=== PATIENT | male | born 1990 | race Caucasian/White ===

== ENCOUNTER 2018-09-03 02:57 | Emergency (ER) | payer SELFPAY ==
--- NOTE | 2018-09-03 04:19 | CR ---
Indication: Left-sided dental pain, broken tooth Technique: Four views of the mandible Comparison: None Findings: The osseous structures and teeth are grossly normal in appearance. Visualized paranasal sinuses and mastoid air cells are normally aerated. No gross soft tissue abnormalities. Impression: Grossly normal mandible. CT scan facial bones recommended to further characterize if clinically warranted. Dictated by Israel Del Angel MD @ 09/03/2018 4:18:34 AM Dictated by: Israel Del Angel MD @ 09/03/2018 04:18:41 (Electronically Signed)
[2018-09-03] MEDS ORDERED: Benzocaine 20% Topical Spray UD MUCMEM ONE (04:28)
[2018-09-03] MEDS ORDERED: Ketorolac 60 MG/2 ML SDV IM ONE (04:28)
[2018-09-03] MEDS ORDERED: Lidocaine 2% Viscous Solution 100 ML Bottle PO ONE (04:28)
[2018-09-03] MEDS ORDERED: Lidocaine 2% Viscous Solution 15 ML Cup ONE (04:33)
[2018-09-03] MEDS ORDERED: Lidocaine 2% Viscous Solution 15 ML Cup PO ONE (04:36)
--- NOTE | 2018-09-03 05:10 | EDM.PDOC ---
ED HPI GENERAL MEDICAL PROBLEM - General Chief Complaint: ENT Problem Stated Complaint: TOOTH PAIN Time Seen by Provider: 09/03/18 05:04 - History of Present Illness INITIAL COMMENTS - FREE TEXT/NARRATIVE: HISTORY AND PHYSICAL: History of present illness: Patient's a 27-year-old white male presents with concern of dental pain is scheduled dental appointment on Thursday. Review of systems: As per history of present illness and below otherwise all systems reviewed and negative. Past medical history: As per history of present illness and as reviewed below otherwise noncontributory. Surgical history: As per history of present illness and as reviewed below otherwise noncontributory. Social history: No reported history of drug or alcohol abuse. Family history: As per history of present illness and as reviewed below otherwise noncontributory. Physical exam: HEENT: Atraumatic, normocephalic, pupils reactive, negative for conjunctival pallor or scleral icterus, mucous membranes moist, throat clear, neck supple, nontender, trachea midline. Generally poor dentition he has known dental carry dental fracture and a left lower tooth Lungs: Clear to auscultation, breath sounds equal bilaterally, chest nontender. Heart: S1S2, regular, negative for clicks, rubs, or JVD. Abdomen: Soft, nondistended, nontender. Negative for masses or hepatosplenomegaly. Negative for costovertebral tenderness. Pelvis: Stable nontender. Genitourinary: Deferred. Rectal: Deferred. Extremities: Atraumatic, negative for cords or calf pain. Neurovascular unremarkable. Neuro: Awake, alert, oriented. Cranial nerves II through XII unremarkable. Cerebellum unremarkable. Motor and sensory unremarkable throughout. Exam nonfocal. Diagnostics: X-ray mandible Therapeutics: Toradol 60 IM dental balls Impression: #1 dentalgia #2 dental caries with secondary dental fracture #3 dental abscess Definitive disposition and diagnosis as appropriate pending reevaluation and review of above. Left Oral/Mouth Pain Score (Numeric/FACES): 10 - Related Data Allergies Allergy/AdvReac Type Severity Reaction Status Date / Time Penicillins Allergy Unknown unknown Verified 09/03/18 03:11 Home Meds: Home Meds . [No Known Home Meds] 09/03/18 [History] Past Medical History Cardiovascular History: Reports: None Respiratory History: Reports: None Gastrointestinal History: Reports: None Genitourinary History: Reports: None Musculoskeletal History: Reports: None Neurological History: Reports: None Psychiatric History: Reports: None Endocrine/Metabolic History: Reports: None Hematologic History: Reports: None Immunologic History: Reports: None Oncologic (Cancer) History: Reports: None Dermatologic History: Reports: None - Infectious Disease History Infectious Disease History: Reports: None - Past Surgical History Head Surgeries/Procedures: Reports: None HEENT Surgical History: Reports: Eye Surgery Other HEENT Surgeries/Procedures: obrital surgery Male Surgical History: Reports: None Social & Family History - Tobacco Use Smoking Status *Q: Current Every Day Smoker Years of Tobacco use: 10 Packs/Tins Daily: 1 - Alcohol Use Days Per Week of Alcohol Use: 1 Number of Drinks Per Day: 2 Total Drinks Per Week: 2 - Recreational Drug Use Recreational Drug Use: Yes Recreational Drug Type: Reports: Marijuana/Hashish Recreational Drug Use Frequency: Rarely ED ROS GENERAL - Review of Systems Review Of Systems: ROS reveals no pertinent complaints other than HPI. ED EXAM, GENERAL - Physical Exam Exam: See Below (See dictation) Course - Vital Signs Last Recorded V/S: Last Vital Signs Temp 36.5 C 09/03/18 03:07 Pulse 68 09/03/18 04:31 Resp 20 09/03/18 04:31 BP 121/70 09/03/18 04:31 Pulse Ox 98 09/03/18 04:31 - Orders/Labs/Meds Meds: Medications Discontinued Medications Generic Name Dose Route Start Last Admin Trade Name Freq PRN Reason Stop Dose Admin Benzocaine 2 each 09/03/18 04:28 09/03/18 04:38 Hurricaine One 20% MUCMEM 09/03/18 04:29 2 each ONETIME ONE Administration Ketorolac Tromethamine 60 mg 09/03/18 04:28 09/03/18 04:38 Toradol IM 09/03/18 04:29 Not Given ONETIME ONE Lidocaine HCl Confirm 09/03/18 04:33 09/03/18 04:38 Xylocaine 2% Viscous Administered 09/03/18 04:34 Not Given Dose 15 ml .ROUTE .STK-MED ONE Lidocaine HCl 15 ml 09/03/18 04:36 09/03/18 04:38 Xylocaine 2% Viscous PO 09/03/18 04:37 15 ml ONETIME ONE Administration Departure - Departure Time of Disposition: 05:08 Disposition: Home, Self-Care 01 Clinical Impression: Dentalgia, Dental abscess - Discharge Information Referrals: PCP,None [Primary Care Provider] - Additional Instructions: The following information is given to patients seen in the emergency department who are being discharged to home. This information is to outline your options for follow-up care. We provide all patients seen in our emergency department with a follow-up referral. The need for follow-up, as well as the timing and circumstances, are variable depending upon the specifics of your emergency department visit. If you don't have a primary care physician on staff, we will provide you with a referral. We always advise you to contact your personal physician following an emergency department visit to inform them of the circumstance of the visit and for follow-up with them and/or the need for any referrals to a consulting specialist. The emergency department will also refer you to a specialist when appropriate. This referral assures that you have the opportunity for followup care with a specialist. All of these measure are taken in an effort to provide you with optimal care, which includes your followup. Under all circumstances we always encourage you to contact your private physician who remains a resource for coordinating your care. When calling for followup care, please make the office aware that this follow-up is from your recent emergency room visit. If for any reason you are refused follow-up, please contact the [facility] emergency department at and asked to speak to the emergency department charge nurse. Clindamycin naproxen as prescribed keep scheduled dental appointment return as needed as discussed dental balls as directed
== END 2018-09-03 05:32 | disposition home or self-care (01) ==
LOC: MW.ED 02:57
DX: K04.7 Periapical abscess without sinus (principal); F17.210 Nicotine dependence, cigarettes, uncomplicated; Z88.0 Allergy status to penicillin
CPT/HCPCS: 70110; 99283; A9270; 99282